=== PATIENT | male | born 1945 | race Caucasian/White ===

== ENCOUNTER 2016-04-05 20:19 | Inpatient (IN) | payer OTHER ==
[~2016-04-05] VITALS: Ht 180.3 cm; Wt 85.3 kg
--- NOTE | ~2016-04-05 | HC ---
[facility] [place] [address] CONSULTATION Name: SABINA ANTONIO Room #: 305-P [facility] IN ..#: [id number] Admission: 04/05/16 Attend Phys: Larry Fortune DO Discharge: 04/15/16 Date of : 47 Report #: [id number] THIS REPORT FOR: //name// CC: Altaf Fortune DATE OF SERVICE: 04/12/2016 HISTORY OF PRESENT ILLNESS: The patient is a 70-year-old white male who has a prior history of insulin-dependent diabetes mellitus, wounds on his feet, who was admitted with worsening weakness. He has a history of nonhealing diabetic foot ulcers and has had issues with noncompliance. He had had a prior left partial foot amputation. Upon evaluation, he was noted to have osteomyelitis of that left remaining foot. He has been followed by Infectious Disease with IV antibiotics. He was seen by Orthopedics and has now undergone a left below-knee amputation 04/11/2016. We are seeing him in rehabilitation medicine consultation. PAST MEDICAL HISTORY: Includes diabetes mellitus type 2. He has had followup with wound care, although was not going most recently. He had diabetic ulceration of the left great toe requiring amputation and a partial amputation of the left foot in 2009 and history of peripheral neuropathy. HABITS: Some alcohol use. Reports it is moderate. No recreational drug use. History of tobacco but not currently. MEDICATIONS: Please see the full medication listing. ALLERGIES: No known drug allergies. SOCIAL HISTORY: Apartment alone. He notes he can get into the apartment without going up the steps. He does not use any gait aids in the apartment but has been using a walker out in the community. He has been able to do his own ADLs, drives in the community. He has a sister who is and lives in [place], who would be able to be of some assistance. He also has friends that could assist. REVIEW OF SYSTEMS: Did not offer any current complaints of chest pain, shortness of breath or abdominal discomfort. No focal extremity pain complaints. Pain appears to be reasonably controlled involving the left residual limb. PHYSICAL EXAMINATION: GENERAL: He is a pleasant 70-year-old white male, no obvious distress. Alert and oriented. VITAL SIGNS: Last recorded temperature 98.1, pulse 75, respirations 16 and [facility] [address] [place] [address] CONSULTATION Name: SABINA ANTONIO Room #: [address] [place] [address] IN M.R.#: [id number] Admission: 04/05/16 Attend Phys: Larry Fortune DO Discharge: 04/15/16 Date of : 47 Report #: [id number] blood pressure 126/76. HEENT: Appeared to be benign. NEUROLOGIC: Cranial nerves grossly intact. Facies are symmetric. Functional range of motion of the upper extremities except for his hands. He has what looks like chronic Dupuytren's contractures of both hands with fixed flexion deformities, especially of his fourth and fifth digits. He does have good manager beverage, but again is unable to fully extend his hands bilaterally. Proximal strength appears to be a grade 4 to 4-. Lower extremities: He has the left below-knee amputation with the knee immobilizer in place, and the residual limb dressed. Proximal strength appears to be at least grade 3+ to 4-/5, although he has some discomfort as expected. Right lower extremity: His toe nails appear long. He does have some decreased proprioception, right large toenail. There is a dressing over the right lateral foot. Strength of the right lower extremity appears to be a grade 4-/5. Tone appeared to be intact. He does have some decreased sensation in a stocking distribution of that right lower extremity. ASSESSMENT: A 70-year-old white male with the following problem list: 1. Chronic osteomyelitis, now status post left below-knee amputation 04/11/2016. 2. Nonhealing diabetic foot ulcers. 3. Insulin-dependent diabetes mellitus. 4. Peripheral polyneuropathy. 5. Hypertension. 6. Generalized weakness and debilitation. 7. Bilateral Dupuytren's contractures of his hands. PLAN: Therapies, re-evaluate him post the below-knee amputation. He certainly may be a candidate for an acute in-hospital inpatient rehabilitation stay to maximize his functional independence prior to returning back to his home setting. He is clearly focussed on returning back to his apartment, and equipment issues and assistance etc. were all discussed with him. He certainly may warrant an acute in-hospital inpatient rehabilitation stay, and we will follow up with you and see how he does in therapies. <ELECTRONICALLY SIGNED> By: Altaf Zeng MD 04/17/16 0958 1234 0028 Altaf Zeng MD /nt
--- NOTE | ~2016-04-05 | HC ---
[facility] [place] [address] CONSULTATION Name: SABINA ANTONIO Room #: 305-P [facility] IN M.R.#: [id number] Admission: 04/05/16 Attend Phys: Larry Fortune DO Discharge: Date of : 47 Report #: [id number] THIS REPORT FOR: //name// CC: Altaf Fortune DATE OF SERVICE: 04/06/2016 SERVICE: Orthopedics. ALLERGIES: MUSSELS, but no known drug allergies. PAST MEDICAL HISTORY: Uncontrolled type 2 diabetes diagnosed in 2003, previous diabetic ulcer of the foot requiring amputation in 2003, MRSA, rhabdomyolysis, peripheral neuropathy and chronic bilateral foot wounds. INPATIENT MEDICATIONS: Include vancomycin, p.r.n. Tylenol, aspirin, Lipitor, Lovenox, insulin, Bystolic and Protonix. PAST SURGICAL HISTORY: In 2003, there was a left midfoot amputation secondary to diabetic ulcer. SOCIAL HISTORY: The patient lives alone. He denies substance abuse. FAMILY HISTORY: Noncontributory. REVIEW OF SYSTEMS: Positive for some mild fatigue following ambulation, but no other significant complaints. He specifically denies bilateral foot pain. He denies fever, chills or drainage. HISTORY OF PRESENT ILLNESS: The patient is a 70-year-old very pleasant male, who was brought to the Emergency Room yesterday after his sister noted an evidence of poor health, and he had been complaining of fatigue. Orthopedics was consulted for evaluation of bilateral foot wounds. He has a history of longstanding bilateral foot wounds that had previously been management Dr. Eddie Meraz. The wounds are secondary to diabetic foot ulcers, and he is status post midfoot amputation on the left side in 2003. Regarding the left foot which presently has an open wound, he denies noticing any drainage on his sock or in his shoe. He also denies any bleeding or other substance in the shower, etc. He has not been completing his wound care followup for his feet. PHYSICAL EXAMINATION: VITAL SIGNS: Temperature is 36.3, pulse 74, respirations 16, blood pressure is 104/65 and pulse ox is 95. GENERAL: He is alert and oriented, no acute distress. Elderly-appearing gentleman who appears his stated age. He is very pleasant and cooperative. [address] [address] CONSULTATION Name: SABINA ANTONIO Room #: 305-P [facility] IN M.R.#: [id number] Admission: 04/05/16 Attend Phys: Larry Fortune DO Discharge: Date of : 47 Report #: [id number] EXTREMITIES: Left lower extremity: He has good range of motion of the hip and knee actively. He has warm skin to the distal leg. He has changes consistent with the trans-midfoot amputation with a well-healed incision and a thick soft tissue envelope. There is a large erosive wound on the plantar surface of the residual limb that is deep and does likely communicate with deep tissues within the wound. There is a foul odor associated with it. I do not appreciate any purulent discharge, and there are no palpable abscesses. He does not have a palpable pulse on my exam. There is tenderness on the dorsal mid foot overlying the distal bone. Right lower extremity: He has good range of motion of the hip, knee and ankle. He has warm skin down to the foot. No palpable pulses on my exam. There is thickened callus at the base of the 5th metatarsal. There is no bony tenderness associated here. There is no drainage. There is no palpable abscess. LABORATORY DATA: White blood cell count is 10.4, hematocrit is 40.6 and platelets 186. Creatinine is 1.1. Sugars have been ranging 180-300 since he was here. IMAGING: Left foot 3 views demonstrate a midfoot amputation. There is a visible wound on the plantar surface of the residual limb. There are vascular calcifications noted. The right foot 3 views demonstrate soft tissue proliferation and thickening over the base of the 5th metatarsal, but no periosteal reaction or evidence of osteomyelitis. There are visible vascular calcifications as well. Ultrasounds, venous and arterial, were obtained this morning, but the studies are pending final report. IMPRESSION: A 70-year-old male, chronic and uncontrolled diabetic, with history of bilateral foot wounds and status post midfoot amputation on the left foot. PLAN: I think the left foot wound is most concerning and likely does communicate with the underlying bone. I think he would benefit from an MRI of both feet to assess the osseous involvement of either. I agree with wound care initiation here in the hospital. I had a yanni discussion with him about his desires for treatment to these wounds. He was lacking much insight into the chronicity and severity of the wound, particularly on the left foot; however, he has a good sense of what the ultimate curative treatment would likely be, which would presumably be a higher level of amputation if this is in fact representing osteomyelitis and a nonhealing wound. He states very adamantly that he is not interested in any sort of amputation treatment for either of these feet, and his actual quote was only in the case of "unrelenting, defying pain" would he even consider amputation as a treatment option. He is in agreement and okay with a notion of local soft tissue care and wound care, but he even said he would need to seriously consider any type of wound care debridement that would necessitate anesthesia. [address] [place] [address] CONSULTATION Name: SABINA ANTONIO Room #: 305-P ADM IN M.R.#: [id number] Admission: 04/05/16 Attend Phys: Larry Fortune DO Discharge: Date of : 47 Report #: [id number] Perhaps the MRI can help us identify the severity of both of these and get a sense of what the most appropriate thing would be based on his personal desires. I did explain to him that if he has osteomyelitis and it progresses, it could come to the point where he would have severe bone pain in which case an amputation would be a recommended procedure for palliative reasons, and he said that would be the only reason that he would consider further amputation at the time of our conversation. . <ELECTRONICALLY SIGNED> By: Javier Dumont MD 04/09/16 1734 1144 1348 aJvier Dumont MD /nt
--- NOTE | ~2016-04-05 | HC ---
[facility] [place] [address] CONSULTATION Name: SABINA ANTONIO Room #: 305-P ADM IN M.R.#: [id number] Admission: 04/05/16 Attend Phys: Larry Fortune DO Discharge: Date of : 47 Report #: [id number] THIS REPORT FOR: //name// CC: Altaf Fortune DATE OF SERVICE: 04/07/2016 CONSULTATION: Infectious diseases. HISTORY OF PRESENT ILLNESS: The patient is a 70-year-old white male admitted to [facility] on April 05 complaining of overwhelming weakness and malaise for about 3 days. The patient was to the point he could hardly walk. He felt so ill. Workup showed that he had a deep diabetic foot wound on his left foot where he had a previous transmetatarsal amputation a few years ago. Initial workup demonstrated strep in 2/2 blood cultures. Infectious Disease consultation was requested to assist with antibiotic management. The patient has been diagnosed with diabetes for approximately 12 years. He notes that in the last several months, he has pretty much stopped any formal medical care. He no longer sees his doctors. He does not take his medications. He says he occasionally checks his blood sugar, but does not really watch his diet. He has a chronic wound on his both feet. He is treating those with dressings. In this setting, the patient developed overwhelming weakness and is brought by his sister to the hospital. MEDICATION RECONCILIATION: Include Tylenol 81 mg, aspirin daily, Lipitor 20 mg at bedtime, Lovenox 40 mg subQ at bedtime, insulin sliding scale, magnesium oxide 400 mg p.r.n., bystolic 5 mg daily, Protonix 40 mg daily, p.r.n. potassium, vancomycin 1.25 grams b.i.d. and Zosyn. ALLERGIES: The patient has no medical allergies. FAMILY HISTORY: Noncontributory. SOCIAL HISTORY: The patient is single. He lives by himself. 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 He does have some support from this sister who lives in town. He denies history of tobacco or significant alcohol. REVIEW OF SYSTEMS: GENERAL: The patient is unaware of fevers, chills, sweats. He had increasing weakness and malaise. ENT: The patient denies headache, sinus congestion, cognitive dysfunction, sore throat, trouble swallowing. The patient denies any cardiac symptoms. The patient denies nausea, vomiting, diarrhea or constipation. The patient denies any pain in his extremities, although he denies having any neuropathy. [address] [address] CONSULTATION Name: SABINA ANTONIO Room #: 305-P [facility] IN M..#: [id number] Admission: 04/05/16 Attend Phys: Larry Fortune DO Discharge: Date of : 47 Report #: [id number] PHYSICAL EXAMINATION: GENERAL: The patient appears older than his stated age, alert, oriented, comfortable, pleasant, not in any distress. VITAL SIGNS: Show maximum measured temperature 100.8, patient was afebrile for the last 24 hours, blood pressure normal. SKIN: Has normal color and turgor. Wounds on the feet described below. ENT: Negative. HEART: Sounds normal. LUNGS: Clear. ABDOMEN: Belly soft, not tender. EXTREMITIES: Diminished pulses. There is interosseous atrophy. The skin is dry and dyshidrotic. On the right foot, there is an eschar on the lateral side of the foot at the level of the proximal fifth metatarsal head measuring approximately 25 x 35 mm, depth is undeterminable because of this eschar. The left foot shows the very proximal transmetatarsal amputation, actually looks like the amputation was proximal to the metatarsals at the level of tarsals. There is a large eschar wound about 45 x 35 mm, half the wound is eschar and the lateral half is fibrinous debris. There is a foul somewhat gangrenous odor coming from the foot when it is undressed. There is really no erythema nor swelling. There is moderate foul drainage from the wound. LABORATORY DATA: White count was 14 on admission, now down to 10,000, hemoglobin 13.7, hematocrit 40%, platelets 186,000, hemoglobin A1c was 8.3. Electrolytes: BUN and creatinine were normal, glucose was 233. TSH is normal. The MRI of the foot shows extensive osteomyelitis in the cuboid bone under the wound. The arterial Doppler showed no significant blockage. The microbiology laboratory reports that 2/2 blood cultures are growing strep. It is too early to rule out enterococcus. IMPRESSION: 1. Diabetic foot wound with osteomyelitis and bacteremia. 2. Diabetes in neglect. I discussed with the patient that he is at a critical juncture here. His current approach with neglect and his dressing changes is not stable. On that regimen, I would anticipate repeated hospitalizations or within 1-3 months. He is having impending gangrene and already has bacteremia with extensive osteomyelitis. The most expeditious treatment would be a below-knee amputation, but the patient says he will not agree to that unless he is in intractable pain. I explained that medical therapy would involve very intensive treatment with surgical debridement, 6-8 weeks of IV antibiotics, wound care, glycemic control, offloading; this would probably require being in a alf [address] [place] [address] CONSULTATION Name: SABINA ANTONIO Room #: 305-P ADM IN M.R.#: [id number] Admission: 04/05/16 Attend Phys: Larry Fortune DO Discharge: Date of : 46 Report #: [id number] facility or long-term acute care hospital. Hyperbaric oxygen therapy might be a useful adjunct for this Hoyt level 3 wound, possibly been early Hoyt 5. At this time, we will continue the patient on vancomycin pending results of cultures. We will discontinue the Zosyn. In addition to the lab work which has been performed, I have added a zinc level, BMP. If the patient is agreeable to medical treatment, we can consider consultation for hyperbaric medicine. Dr. Eddie Meraz has been consulted to the patient after the holiday weekend. I appreciate the opportunity to offer input in the care of this complex patient. Thank you for requesting Infectious Disease consultation. Dr. Mike had seen this patient earlier and will assume follow up on Saturday. <ELECTRONICALLY SIGNED> By: Dilan Logan MD 04/08/16 1153 1119 0041 Dilan Logan MD /nt
--- NOTE | ~2016-04-05 | S ---
[facility] [place] [address] SURGICAL PATH RPT PROCEDURE Name: SABINA AGUIRRE Room #: 305-P ADM IN M.R.#: [id number] Admission: 04/05/16 Date of : 47 Discharge: Report #: [id number] Path Case #: [id number] PATHOLOGY REPORT COLLECTION DATE: 04/11/2016 RECEIVED DATE: 04/11/2016 SUBMITTING PHYS: Dr. Javier Dumont OTHER PHYS: Dr. Altaf Fortune SPECIMEN(S) RECEIVED: A.Left below the knee amputation * * * * * * * * * * * * FINAL DIAGNOSIS: "Left below the knee amputation," amputation: - Skin and subcutaneous tissue with acute and chronic inflammation, necrosis, granulation tissue, and pseudoepitheliomatous hyperplasia. - Decalcified bone with fibrosis, predominantly chronic inflammation, marked reactive changes, and bony remodeling. (see comment) - Blood vessels with calcific atherosclerosis. COMMENT: The bony findings may represent chronic osteomyelitis. Clinical and radiographic correlation is recommended. (CLW:; d/t: 04/13/16) PATHOLOGIST: Tonya Moore M.D. REPORT ELECTRONICALLY SIGNED BY: Tonya Moore M.D. DATE/TIME: 04/13/2016 20:03 * * * * * * * * * * * * GROSS PATHOLOGY: The specimen is received fresh in an orange biohazard bag and labeled "Sabina Aguirre and left below the knee amputation." Received is a left lower extremity specimen amputated through the tibia and fibula with a smooth resection margin. The specimen has previously undergone a transmetatarsal amputation, therefore all 5 digits are absent. In the digits place is a blunt end. The specimen measures 14.0 cm from heel blunt end of foot (where digits would be), 25.7 cm from heel to soft tissue resection margin, 41.2 cm from heel to tibial bone resection margin, and 42.5 cm from heel to fibular bone resection margin. The skin, soft tissue, and bone resection margins are grossly viable and unremarkable. The skin is vasquez, dusky, diffusely mottled, and wrinkled. There is a 5.5 x 4.8 cm bright red to vasquez-brown ulcer located on the plantar aspect of the foot. The ulcer [address] [address] SURGICAL PATH RPT PROCEDURE Name: MARISELASABINADEE LAUREN Room #: 305-P [facility] IN M.R.#: [id number] Admission: 04/05/16 Date of : 47 Discharge: Report #: [id number] Path Case #: [id number] grossly extends to and involves the underlying bone. Sectioning of the anterior and posterior tibial vasculature reveals patent and slightly calcified lumens. Kettle Coordinator sections are submitted as follows: A1 longitudinal section of skin and soft tissue margin (inked) A2-A3 ulcer A4 bone underlying ulcer, following decalcification A5 anterior tibial vasculature, following decalcification A6 posterior tibial vasculature, following decalcification (TTL; 04/12/2016) CLINICAL HISTORY: Left foot osteomyelitis INITIAL CPT CODE(S): A; 94669, 43221 Professional services performed by [facility] at [facility] [address] [place] [address] Technical services performed by [facility] at [address] [place] [address], [facility] [address], [place] [address]. [facility] [address] [place] [address] PHONE: [phone] DIRECTOR: Param Gayle M.D. * * * END OF REPORT * * *
--- NOTE | ~2016-04-05 | HC ---
[facility] [place] [address] CONSULTATION Name: SABINA ANTONIO Room #: 305-P [facility] IN M.R.#: [id number] Admission: 04/05/16 Attend Phys: Larry Fortune DO Discharge: 04/15/16 Date of : 47 Report #: [id number] THIS REPORT FOR: //name// CC: Altaf Fortune DATE OF SERVICE: 04/10/2016 PERSONAL PHYSICIAN:Arnulfo Pink M.D. CHIEF COMPLAINT: Diabetic foot ulcer. REASON FOR DEBRIDEMENT: Diabetic foot ulcer with callus and necrotic tissue. PREPROCEDURE DIAGNOSES: 1. Chronic ulceration on the plantar aspect right foot with limited involvement of subcutaneous . 2. Diabetes mellitus. 3. Peripheral vascular disease. POSTPROCEDURE DIAGNOSES: 1. Chronic ulceration on the plantar aspect right foot with limited involvement of subcutaneous . 2. Diabetes mellitus. 3. Peripheral vascular disease. PROCEDURE: After timeout was taken, verbal consent was obtained. The patient had excisional debridement down to and including subcutaneous tissue with removal of viable and nonviable tissue. A 100% of the ulcer was debrided for a total of less than 20 square cm totally debrided. Predebridement measurements were 3.0 x 3.5 x 0.1 cm. Post-debridement measurement or 3.3 x 3.9 x 0.3 cm 0.2 cm. Bleeding was minimal easily controlled. Pressure scalpel and forceps were used for the debridement. No anesthesia was used for the debridement. The patient tolerated the procedure quite well. Post-debridement, the patient had a sterile dressing placed over the wound. ulcer. Once again, this was excisional debridement less than 20 square cm of subcutaneous tissue. <ELECTRONICALLY SIGNED> By: Eddie Meraz MD 04/26/16 1342 1340 2137 Eddie Meraz MD /nt
--- NOTE | ~2016-04-05 | 2DMMODE ---
[facility] [place] [address] 2 D/M-MODE ECHOCARDIOGRAM Name: SABINA ANTONIO Room #: 305-P [facility] IN .R.#: [id number] Admission: 04/05/16 Attend Phys: Larry Fortune, Discharge: Date of : 47 Date of Service: 04/10/16 [facility] Report #: [id number] THIS REPORT FOR: //name// Transthoracic Echocardiography Ordering physician: Bhupendra Garay Referring physician: Bhupendra Garay Supervisor Of Officials: Kimberly Jim Indications/History: Bacteremia. Hx: DM BP: 132 / HR: 60bpm Height: 71in Weight: 189.6lb 71 Study data: M-mode, complete 2D, complete spectral Doppler, and color Doppler. Location: Bedside. Routine. Image quality was adequate. 2D measurements Normal Normal LVID ED 47.9mm 36-57 IVS ED 10.7mm 6-11 LVID ES 27.6mm 23-40 LVPW ED 11.1mm 6-11 LA volume 31ml/m2 16-28 AoRoot diam 34.8mm 21-37 index ED LVOT diameter 22mm 18-23 Findings: Left ventricle: The cavity size was normal. There was moderate focal basal hypertrophy of the septum. Systolic function was normal. The estimated ejection fraction was in the range of 60% to 65%. Wall motion was normal. Right ventricle: The cavity size was normal. Systolic function was normal. Right atrium: The atrium was normal in size. Left atrium: The atrium was at the upper limits of normal in size. Volume index: 31ml/m2 (S). Aortic valve: Structurally normal valve. Moderately sclerotic leaflets. Doppler: There was no stenosis. No regurgitation. Peak velocity: 146cm/s (S). Mitral valve: Moderately calcified annulus with more dende [facility] [address] [place] [address] 2 D/M-MODE ECHOCARDIOGRAM Name: SABINA ANTONIO Room #: 305-P [facility] IN Torin#: [id number] Admission: 04/05/16 Attend Phys: Larry Fortune, Discharge: Date of : 47 Date of Service: 04/10/16 [facility] Report #: [id number] focal cslcification at base of anterior leaflet. Mildly thickened leaflets . Doppler: There was no evidence for stenosis. Moderate regurgitation. Eccentric jet. Peak E-wave velocity: 101.5cm/s. Peak gradient: 4.1mm Hg (D). Peak A-wave velocity: 117.1cm/s. Tricuspid valve: Structurally normal valve. Doppler: There was no evidence for stenosis. No regurgitation. Pulmonic valve: Structurally normal valve. Doppler: There was no evidence for stenosis. Trivial regurgitation. Pericardium: There was no pericardial effusion. Aorta: Aortic root: The aortic root was normal in size. Pulmonary artery: Pressure could not be reliably determined due to minimal or absent tricuspid insufficiency jet, but pulmonary hypertension was not suggested. Diastolic function: Doppler parameters are consistent with abnormal left ventricular relaxation (grade 1 diastolic dysfunction). Systemic veins: Inferior vena cava: The vessel was normal in size; the respirophasic diameter changes were in the normal range (= 50%). Conclusions 1. Left ventricle: The cavity size was normal. There was moderate focal basal hypertrophy of the septum. Systolic function was normal. The estimated ejection fraction was in the range of 60% to 65%. Wall motion was normal. 2. Left atrium: The atrium was at the upper limits of normal in size. 3. Aortic valve: Structurally normal valve. Moderately sclerotic leaflets. There was no stenosis. No regurgitation. 4. Mitral valve: Moderately calcified annulus with more dende focal cslcification at base of anterior leaflet. Mildly thickened leaflets . There was no evidence for stenosis. Moderate regurgitation. Eccentric jet. 5. Pulmonary arteries: Pressure could not be reliably determined due to minimal or absent tricuspid [facility] [address] [place] [address] 2 D/M-MODE ECHOCARDIOGRAM Name: SABINA ANTONIO XIN Room #: 305-P [facility] IN ..#: [id number] Admission: 04/05/16 Attend Phys: Larry Fortune, Discharge: Date of : 47 Date of Service: 04/10/16 1038 Report #: [id number] insufficiency jet, but pulmonary hypertension was not suggested. <ELECTRONICALLY SIGNED> By: Saeed Dodd MD 04/10/16 1147 1038 1147 Saeed Dodd MD /angelina
--- NOTE | ~2016-04-05 | HC ---
[facility] [place] [address] CONSULTATION Name: SABINA ANTONIO Room #: 305-P [facility] IN M.R.#: [id number] Admission: 04/05/16 Attend Phys: Larry Fortune DO Discharge: 04/15/16 Date of : 47 Report #: [id number] THIS REPORT FOR: //name// CC: Alatf Fortune DATE OF SERVICE: 04/13/2016 REASON FOR CONSULTATION: Depression, tearful. HISTORY OF PRESENT ILLNESS: This is a gentleman, who recently had a left below the knee amputation. There was concern about him being depressed and tearful. Some question has also been made as far as his adherence to treatment. The patient is quite tearful, when I approach. He told me that he has accepted the amputation and is motivated to go to rehabilitation and return home. He does not have any doubt about returning to driving or managing his own affairs. When asked about any specific course of action to prevent further infections or amputation, he does not have any very specific answers nor does he have concerns about this. PAST PSYCHIATRIC HISTORY: It does not appear that he has seen a psychiatrist before. He has not been on a psychiatric consultation service in the past. He has seen the neuropsychologist for testing and with the last around of testing in April 2013, there was a little concern about decreased cognition and perhaps more so into reduced insight into aspects of his disabilities. He tells me that the doctors told him he did not need insulin so long as he could manage his conditions with a proper diet and that when he did check his blood sugar, he always kept it "around 120". Unfortunately, this does not seem to be the case based upon some of the hemoglobin Alc that are available including 8.3 on 04/06 and 10.1 on 07/10/2014. There have been random glucoses during this hospital stay, many of which were over 200. PAST MEDICAL HISTORY: Diabetes, recent cejkr-dad-rqaj amputation. He is on day 8 of ceftriaxone. History of neuropathy. SOCIAL HISTORY: He used to work in [employer], did this for many decades, now he is happy retired, lives alone and denies any difficulties with this. MENTAL STATUS EXAM: male, casually dressed, stable mood and affect, seems to be a bit superficial with response to question. No suicidal ideation, no homicidal ideation, no hallucinations, no delusions. Insight, judgment appears fair, but some of his answers seems superficial. DIAGNOSES: AXIS I: 1. Mood disorder, not otherwise specified. [address] [address] CONSULTATION Name: SABINA ANTONIO Room #: 305-P [facility] IN ..#: [id number] Admission: 04/05/16 Attend Phys: Larry Frotune DO Discharge: 04/15/16 Date of : 47 Report #: [id number] 2. Rule out adjustment disorder with depressed mood. 3. Rule out cognitive disorder, not otherwise specified. AXIS II: Deferred. AXIS III: See past medical history. AXIS IV: Moderately severe. AXIS V: 45. RECOMMENDATIONS: I understand he is going to be going up to rehabilitation. We are happy to continue to monitor him and provide input. I would be curious how neuropsychological testing with Dr. Bravo would compare, now that a few more years have past. I do worry that some of the information the gentleman has given me might not be quite factually correct including blood sugars that lately have always stayed around 120 and his physician telling him that he did not need insulin and that he could control his diabetes with diet. I do not know whether he has a healthcare power of pediatric care coordinator or not, although the sequelae of diabetes can be severe, does not appear he has been prone to bouts of diabetic ketoacidosis or acute issues related to diabetes and its management. <ELECTRONICALLY SIGNED> By: Babatunde Campuzano MD 04/24/16 0857 1534 0440 Babatunde Campuzano MD /nt
--- NOTE | ~2016-04-05 | HC ---
[facility] [place] [address] CONSULTATION Name: SABINA ANTONIO Room #: 305-P [facility] IN M.R.#: [id number] Admission: 04/05/16 Attend Phys: Larry Fortune DO Discharge: 04/15/16 Date of : 47 Report #: [id number] THIS REPORT FOR: //name// CC: Altaf Fortune DATE OF SERVICE: 04/08/2016 REASON FOR CONSULTATION: Nonhealing diabetic foot ulcer of left foot, status post forefoot amputation. HISTORY: The patient is a 70-year-old patient with diabetes mellitus, well known to Dr. Meraz from care of a nonhealing diabetic foot ulcer. This gentleman was diagnosed with diabetes mellitus type 2, 02/2004 and required multiple partial amputations of the left foot for diabetic foot ulceration, initially ending up with an amputation of the entire forefoot. The patient had seen Dr. Meraz previously for a nonhealing diabetic foot ulcer, which the patient has had for over a year; however, he has not seen Dr. Meraz recently. The patient was now admitted to [facility] due to malaise and a deteriorating ulcer of the left foot. He had some signs of sepsis with white blood count of 14.5 and begun on antibiotics and was seen by Dr. Logan. Wound care is consulted for care of his nonhealing diabetic foot ulcer. PAST MEDICAL HISTORY: 1. Diabetes mellitus type 2 since 02/2004. 2. Diabetic polyneuropathy. 3. History of rhabdomyolysis, 10/2009. 4. History of urinary tract infection. PAST SURGICAL HISTORY: Multiple amputations of the left foot, resulting in a left complete forefoot amputation. REVIEW OF SYSTEMS: The patient feels improved with IV antibiotics. SOCIAL HISTORY: The patient reports some alcohol use. Does not smoke. HOSPITAL TEST: White blood count on admission 14.5 with the left shift, 87 segs. Radiographic tests include chest x-ray showing no cardiopulmonary disease. Ultrasound of the bilateral lower extremities shows no evidence of hemodynamically significant stenosis. Dorsalis pedis and posterior tibial arteries are patent. Plain x-ray of the left foot showed no convincing radiographic evidence for osteomyelitis. Venous ultrasound showed no evidence of deep vein thrombosis. MRI of the left foot shows a small plantar soft tissue noted at the level of the base of fifth metatarsal without underlying osteomyelitis. [address] [address] CONSULTATION Name: SABINA ANTONIO Room #: 305-P [facility] IN .R.#: [id number] Admission: 04/05/16 Attend Phys: Larry Fortune DO Discharge: 04/15/16 Date of : 47 Report #: [id number] PHYSICAL EXAMINATION: GENERAL: Chronically ill-appearing elderly man. VITAL SIGNS: Stable. He is afebrile. HEENT: Mucous membranes are moist. NECK: Supple. CHEST: Clear. ABDOMEN: Soft. EXTREMITIES: Shows right lower extremity intact. Examination of the left lower extremity shows a complete forefoot amputation. On the plantar aspect of the left foot, there is an open 1.5 x 1.5 cm ulcer with some nonviable tissue at the base. No obvious exposed bone. This was surrounded by a 4 cm in diameter area of dark crusted nonviable-appearing tissue, which may represent simply crusted callus with no obvious underlying wound. This is slightly sensitive to touch. There is no surrounding cellulitis. ASSESSMENT AND PLAN: 1. Diabetes mellitus type 2. 2. Status post multiple amputations of the left foot, resulting in complete forefoot amputation. 3. Diabetic polyneuropathy. 4. Chronic nonhealing ulcer of the left foot, admitted with signs of infection, improved with antibiotics. Negative for osteomyelitis by MRI. The patient has been seen in consultation by Dr. Dilan Logan. He is currently on IV antibiotics and has been seen by Orthopedics, Dr. Barbara Paul who discussed typical recommendation. This clinical scenario would be a below-knee amputation. The patient indicates he does not wish to have this performed. Based on the appearance of the wound, we will now initiate therapy with morphine-Silvadene compound changed twice daily with Optifoam pad. Local care may require. Local debridement of tissues were discussed with Dr. Meraz. <ELECTRONICALLY SIGNED> By: Teja Montague MD 04/16/16 1401 0719 0905 Teja Montague MD /nt
--- NOTE | ~2016-04-05 | O ---
[facility] [place] [address] OPERATIVE REPORT Name: ANTONIOSABINA LAUREN Room #: 305-P [facility] IN M.R.#: [id number] Admission: 04/05/16 Attend Phys: Larry Fortune DO Discharge: Date of : 47 Report #: [id number] THIS REPORT FOR: //name// CC: Altaf Fortune DATE OF SERVICE: 04/11/2016 SERVICE: Orthopedics. FACILITY: [facility]. PREOPERATIVE DIAGNOSES: 1. Nonhealing diabetic wound, left lower extremity. 2. Status post prior mid foot amputation, left foot. 3. Osteomyelitis, left foot. 4. Uncontrolled diabetes mellitus with history of medication noncompliance. POSTOPERATIVE DIAGNOSES: 1. Nonhealing diabetic wound, left lower extremity. 2. Status post prior mid foot amputation, left foot. 3. Osteomyelitis, left foot. 4. Uncontrolled diabetes mellitus with history of medication noncompliance. PROCEDURE: Left below knee amputation. COMPLICATIONS: None. DRAINS: None. SPECIMENS: Left leg. ESTIMATED BLOOD LOSS: 30 mL. TOURNIQUET TIME: 53 minutes. INTRAVENOUS FLUIDS: 900 mL of crystalloid. HISTORY AND INDICATIONS: The patient is a 70-year-old male who was admitted to the hospital last week with uncontrolled diabetes, history of diabetic noncompliance including ongoing nonusage of his medicines and a chronic nonhealing wound going back a couple of years. He had previously had a mid foot amputation of the left foot and had imaging that was confirmatory of osteomyelitis of the mid foot and so the only other curative of option was below-knee amputation. He took several days to consider this. All the various subspecialists agreed that below-knee amputation was the appropriate option and [facility] [address] [place] [address] OPERATIVE REPORT Name: SABINA ANTONIO XIN Room #: 305-P AD[facility] IN M.R.#: [id number] Admission: 04/05/16 Attend Phys: Larry Fortune DO Discharge: Date of : 47 Report #: [id number] then I had several conversations with him. We spoke last night and weighed the risks, benefits, alternatives and indications and ultimately he felt like this was the right thing to do so. We elected to proceed with below-knee amputation. Risks include but not limited to pain, bleeding, infection, injury to nerves, wound breakdown, need for further surgery including revision, prosthetic complications and difficulty to ambulation as well as complications related to anesthesia such as stroke, heart attack, pulmonary complications, thromboembolic disease and . Despite these risks, he wished to proceed. PROCEDURE IN DETAIL: After left lower extremity was correctly identified in the preoperative holding area as the operative extremity, the patient was taken to the operating room and placed supine on operating table and general endotracheal anesthesia was induced without complication. All bony prominences and subcutaneous nerves were padded appropriately. A tourniquet was applied to the left thigh. Prophylactic antibiotics were administered with 1 gram of vancomycin. He is receiving ongoing Rocephin during his hospitalization. Left lower extremity was then prepped and draped in standard sterile fashion. A time-out procedure was performed. The leg was elevated and exsanguination was achieved with elevation and then tourniquet was inflated to 300 mmHg. Total tourniquet time was 53 minutes. The skin flaps were marked at the level of the tibia, 10 cm from the joint line and then skin incisions were made sharply. Dissection was taken down to the fascia. The tibia was then exposed. Soft tissue stripped from the tibia. Initial anterior compartment muscle was dissected as vessels were encountered. They were ligated and then cauterized and/or cut. Silk ties were used for ligation. Nerves were cut sharpy and allowed to retract. The tibia was sectioned 1 cm proximal to the skin and fascial incision and then the posterior compartment soft tissues were dissected as well with an effort to obtain an appropriate soft tissue padding for the tibial remnant. The fibula was transected 1 cm proximal to the tibial transection level. The leg was then removed and sent for pathology. Final soft tissue work was completed and the tourniquet was let down and we confirmed that hemostasis was achieved. The remainder of the case was performed without tourniquet to ensure that there was a good sense of dry wound bed. The fascia was then closed with 0 Vicryl suture in [id number]-dt-[id number] fashion brining the posterior skin flap over the tibia and then securely fixed to the periosteal layer. This provided good coverage of the tibia after it had been beveled with an anterior cut. There were no significant dog ears and no additional debulking of the soft tissue flap needed to be performed and the fascial layer was closed with 2-0 Vicryl suture in interrupted fashion and the skin was closed with 2-0 Vicryl and 3-0 diagonal mattress suture nylon. A sterile dressing followed by a compressive JANNET wrap and a knee immobilizer were then applied. [facility] [address] [place] [address] OPERATIVE REPORT Name: SABINA ANTONIO Room #: 305-P ADM IN M.Mendy.#: [id number] Admission: 04/05/16 Attend Phys: Larry Fortune DO Discharge: Date of : 47 Report #: [id number] There were no complications. All counts were recorded as correct. <ELECTRONICALLY SIGNED> By: Javier Dumont MD 04/12/16 1617 1354 1542 Javier Dumont MD /nt
--- NOTE | ~2016-04-05 | EKG ---
[address] [place] [address] ELECTROCARDIOGRAM REPORT Name: SABINA ANTONIO Room #: 305-P ADM IN M.R.#: [id number] Admission: 04/05/16 Attend Phys: Larry Fortune DO Discharge: Date of : 47 Report #: [id number] THIS REPORT FOR: //name// [facility] ED Test Date: 2016-04-05 Test Time: 21:43:26 Pat Name: SABINA ANTONIO Department: Room: 305 Gender: M Manager Steel: RONY : 1945 Requested By: Kimberlee Sylvester Order Number: [id number] MD: Osman Kenyon Measurements Intervals [place] Rate: 118 P: 47 IN: 180 QRS: 18 QRSD: 86 T: 268 QT: 307 QTc: 431 Interpretive Statements Sinus tachycardia Borderline ST and T abnormalities No previous ECG available for comparison Electronically Signed On 04-06-2016 9:31:15 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
[~2016-04-05 20:19] MED LIST: ANCEF 1GM1 GM/50 M1 IV; ANCEF 1GM1 GM/50 M1 IVPB; APAP500 PO; ATENOLOL 50 MG50 M1 PO; BAYER CHEWABLE81 MG PO; BETADINE30 ML TOP; BYSTOLIC 5 MG5 M1 PO; Cyanocobalamin SUBLING; ENOXAPARIN40 MG/0.1 SUBQ; FLOMAX PO; IBUPROFEN; K-DUR 20 MEQ T20 MEQ PO; LEVEMIR SUBQ; LIPITOR 20 MG T20 M1 PO; LIPITOR40 MG PO; METFORMIN HCL500 MG PO; NOVOLOG100 UNIT/1 SUBQ; PACERONE 200 M200 M1 PO; PLAVIX 75 MG TA75 M1 PO; PROTONIX40 M2 PO; ROBAXIN 750 MG750 M1 PO; SODIUM CHLORIDE50 M4 IV; TEARS NATURALE1 EACH OPHTHALMIC; X VIATE TP
[2016-04-05 20:20] VITALS: BP 119/70
[2016-04-05 21:32] LABS: HEMATOCRIT 47.7 % (42.0-52.0); HEMOGLOBIN 15.8 gm/dL (14.0-18.0); MCH 27.4 pg (26.0-34.0); MCHC 33.2 % (28.0-37.0); MCV 82.3 fL (80.0-100.0); PLATELET COUNT 216 thou/uL (150-400); RBC 5.79 mil/uL (4.50-6.00); RDW 15.4 % (10.5-14.5); WBC 14.5 thou/uL (4.0-11.0)
[2016-04-05 21:36] LABS: MANUAL DIFF YES
[2016-04-05 21:41] LABS: CALCIUM 9.2 mg/dL (8.5-10.1); CREATININE 1.3 mg/dL (0.6-1.3)
[2016-04-05 21:49] LABS: ABSOLUTE NEUTROPHILS 12.6 thou/uL (1.4-8.2); TOTAL CELL COUNT 100
[2016-04-05 23:17] VITALS: BP 139/80
[2016-04-06] VITALS (7 sets, daily range): BP systolic 104–154; BP diastolic 61–85
[2016-04-06 02:06] LABS: URINE BILIRUBIN NEGATIVE (Negative); URINE BLOOD 1+ (Negative); URINE COLOR YELLOW; URINE GLUCOSE-RANDOM* 2+ (Negative); URINE KETONES 1+ (Negative); URINE LEUKOCYTES-REFLEX NEGATIVE (Negative); URINE PROTEIN (DIPSTICK) 1+ (Negative); URINE SPECIFIC GRAVITY 1.015 (1.003-1.035)
[2016-04-06 02:31] LABS: CASTS None Seen /LPF (None Seen); CRYSTALS None Seen /LPF (None Seen); SQUAMOUS 0-3 Few /LPF (0-3); TRANSITIONAL EPITHEL CELL 0-3 Few /LPF (None Seen); URINE RBC 0-2 Rare /HPF (0-2); URINE WBC-REFLEX 0-5 Rare /HPF (0-5)
[2016-04-06 02:32] LABS: HYALINE CASTS 0-3 Few /LPF (None Seen)
[2016-04-06 04:56] LABS: HEMATOCRIT 40.6 % (42.0-52.0); MCH 27.6 pg (26.0-34.0); MCHC 33.8 % (28.0-37.0); MCV 81.7 fL (80.0-100.0); RBC 4.97 mil/uL (4.50-6.00); RDW 15.3 % (10.5-14.5); WBC 10.4 thou/uL (4.0-11.0)
[2016-04-06 05:14] LABS: HEMOGLOBIN 13.7 gm/dL (14.0-18.0)
[2016-04-06 05:48] LABS: CALCIUM 7.9 mg/dL (8.5-10.1); CREATININE 1.1 mg/dL (0.6-1.3); POTASSIUM 3.1 mmol/L (3.5-5.1)
[2016-04-06 14:12] LABS: TSH 0.796 uIU/mL (0.450-4.500)
[2016-04-06 20:24] LABS: CALCIUM 7.9 mg/dL (8.5-10.1); POTASSIUM 3.5 mmol/L (3.5-5.1)
[2016-04-06 20:25] LABS: MAGNESIUM 1.7 mg/dL (1.8-2.4)
[2016-04-07 01:06] LABS: GLYCOHEMOGLOBIN (HGB A1C) 8.3 % (4.8-5.6)
[2016-04-07 03:45] VITALS: BP 117/63
[2016-04-07 08:00] VITALS: BP 133/75
[2016-04-07 12:00] VITALS: BP 144/84
[2016-04-07 16:00] VITALS: BP 128/73
[2016-04-07 19:30] VITALS: BP 121/66
[2016-04-08 03:45] VITALS: BP 114/54
[2016-04-08 07:50] VITALS: BP 132/71
[2016-04-08 08:22] LABS: BASOPHILS 0.6 % (0.0-2.0); HEMATOCRIT 41.4 % (42.0-52.0); HEMOGLOBIN 13.6 gm/dL (14.0-18.0); LYMPHOCYTES 32.1 % (24.0-44.0); MCH 27.3 pg (26.0-34.0); MCHC 32.9 % (28.0-37.0); MCV 82.9 fL (80.0-100.0); MONOCYTES 11.1 % (1.0-8.0); PLATELET COUNT 199 thou/uL (150-400); POLYS 52.2 % (36.0-66.0); RBC 4.99 mil/uL (4.50-6.00); WBC 5.7 thou/uL (4.0-11.0)
[2016-04-08 08:23] LABS: MANUAL DIFF NO
[2016-04-08 08:46] VITALS: BP 132/71
[2016-04-08 08:55] LABS: CALCIUM 8.5 mg/dL (8.5-10.1); CREATININE 0.8 mg/dL (0.6-1.3); POTASSIUM 3.2 mmol/L (3.5-5.1)
[2016-04-08 12:49] VITALS: BP 111/59
[2016-04-08 16:39] VITALS: BP 134/85
[2016-04-08 19:21] VITALS: BP 136/69
[2016-04-09 03:58] LABS: ABSOLUTE NEUTROPHILS 3.1 thou/uL (1.4-8.2); BASOPHILS 0.5 % (0.0-2.0); EOSINOPHILS 4.5 % (0.0-3.0); HEMATOCRIT 39.5 % (42.0-52.0); HEMOGLOBIN 13.1 gm/dL (14.0-18.0); LYMPHOCYTES 34.6 % (24.0-44.0); MCH 27.5 pg (26.0-34.0); MCHC 33.2 % (28.0-37.0); MONOCYTES 8.9 % (1.0-8.0); PLATELET COUNT 197 thou/uL (150-400); POLYS 51.5 % (36.0-66.0); RBC 4.76 mil/uL (4.50-6.00); RDW 15.3 % (10.5-14.5)
[2016-04-09 03:59] LABS: MANUAL DIFF NO
[2016-04-09 04:08] VITALS: BP 146/69
[2016-04-09 04:17] LABS: CALCIUM 8.3 mg/dL (8.5-10.1); CREATININE 0.9 mg/dL (0.6-1.3); POTASSIUM 3.4 mmol/L (3.5-5.1)
[2016-04-09 08:07] VITALS: BP 123/67
[2016-04-09 12:16] VITALS: BP 125/78
[2016-04-09 16:10] VITALS: BP 123/72
[2016-04-09 20:00] VITALS: BP 148/83
[2016-04-10 04:00] VITALS: BP 120/64
[2016-04-10 08:49] VITALS: BP 132/71
[2016-04-10 11:15] VITALS: BP 125/73
[2016-04-10 18:55] VITALS: BP 111/61
[2016-04-10 20:00] VITALS: BP 130/77
[2016-04-11] VITALS (8 sets, daily range): BP systolic 95–163; BP diastolic 44–82
[2016-04-12 03:25] VITALS: BP 116/67
[2016-04-12 04:53] LABS: ABSOLUTE NEUTROPHILS 11.5 thou/uL (1.4-8.2); BASOPHILS 0.2 % (0.0-2.0); HEMATOCRIT 41.3 % (42.0-52.0); HEMOGLOBIN 13.3 gm/dL (14.0-18.0); LYMPHOCYTES 13.5 % (24.0-44.0); MCH 26.8 pg (26.0-34.0); MCHC 32.2 % (28.0-37.0); MCV 83.1 fL (80.0-100.0); PLATELET COUNT 308 thou/uL (150-400); POLYS 78.3 % (36.0-66.0); RBC 4.97 mil/uL (4.50-6.00); WBC 14.7 thou/uL (4.0-11.0)
[2016-04-12 05:15] LABS: ALBUMIN 2.5 g/dL (3.4-5.0); CALCIUM 8.5 mg/dL (8.5-10.1); CREATININE 1.2 mg/dL (0.6-1.3); TOTAL BILIRUBIN 0.4 mg/dL (<0.1-1.0); TOTAL PROTEIN 6.5 g/dL (6.4-8.2)
[2016-04-12 05:23] LABS: MANUAL DIFF NO
[2016-04-12 07:34] VITALS: BP 122/70
[2016-04-12 12:09] VITALS: BP 126/76
[2016-04-12 19:24] VITALS: BP 130/71
[2016-04-12 23:37] VITALS: BP 160/81
[2016-04-13 03:41] VITALS: BP 160/97
[2016-04-13 07:06] VITALS: BP 1395/79
[2016-04-13 08:27] LABS: ABSOLUTE NEUTROPHILS 9.5 thou/uL (1.4-8.2); BASOPHILS 1.1 % (0.0-2.0); EOSINOPHILS 0.9 % (0.0-3.0); HEMATOCRIT 40.5 % (42.0-52.0); HEMOGLOBIN 13.6 gm/dL (14.0-18.0); MCH 27.1 pg (26.0-34.0); MCHC 33.5 % (28.0-37.0); MCV 80.8 fL (80.0-100.0); MONOCYTES 11.3 % (1.0-8.0); PLATELET COUNT 300 thou/uL (150-400); POLYS 67.7 % (36.0-66.0); RBC 5.02 mil/uL (4.50-6.00); RDW 15.2 % (10.5-14.5)
[2016-04-13 08:28] LABS: MANUAL DIFF NO
[2016-04-13 08:36] LABS: CALCIUM 8.9 mg/dL (8.5-10.1); CREATININE 0.9 mg/dL (0.6-1.3)
[2016-04-13 11:51] VITALS: BP 145/69
[2016-04-13 15:47] VITALS: BP 121/76
[2016-04-13 20:00] VITALS: BP 109/68
[2016-04-14 04:00] VITALS: BP 128/68
[2016-04-14 05:42] LABS: ABSOLUTE NEUTROPHILS 6.9 thou/uL (1.4-8.2); BASOPHILS 0.4 % (0.0-2.0); EOSINOPHILS 1.2 % (0.0-3.0); HEMATOCRIT 38.7 % (42.0-52.0); HEMOGLOBIN 12.8 gm/dL (14.0-18.0); LYMPHOCYTES 21.8 % (24.0-44.0); MCH 27.2 pg (26.0-34.0); MCV 82.5 fL (80.0-100.0); MONOCYTES 12.6 % (1.0-8.0); PLATELET COUNT 294 thou/uL (150-400); RDW 15.1 % (10.5-14.5); WBC 10.8 thou/uL (4.0-11.0)
[2016-04-14 05:46] LABS: MANUAL DIFF NO
[2016-04-14 05:52] LABS: CALCIUM 8.9 mg/dL (8.5-10.1); CREATININE 0.9 mg/dL (0.6-1.3); POTASSIUM 3.7 mmol/L (3.5-5.1)
[2016-04-14 08:00] VITALS: BP 110/73
[2016-04-14 11:30] VITALS: BP 124/61
[2016-04-14 16:00] VITALS: BP 116/62
[2016-04-14 20:00] VITALS: BP 147/72
[2016-04-15 04:00] VITALS: BP 127/69
[2016-04-15 05:45] LABS: ABSOLUTE NEUTROPHILS 7.9 thou/uL (1.4-8.2); BASOPHILS 0.5 % (0.0-2.0); EOSINOPHILS 0.5 % (0.0-3.0); MCH 27.3 pg (26.0-34.0); MCHC 33.3 % (28.0-37.0); MCV 81.8 fL (80.0-100.0); MONOCYTES 9.3 % (1.0-8.0); PLATELET COUNT 262 thou/uL (150-400); POLYS 69.7 % (36.0-66.0); RDW 15.2 % (10.5-14.5); WBC 11.3 thou/uL (4.0-11.0)
[2016-04-15 05:56] LABS: MANUAL DIFF NO
[2016-04-15 05:59] LABS: CALCIUM 8.5 mg/dL (8.5-10.1); CREATININE 0.9 mg/dL (0.6-1.3); POTASSIUM 3.4 mmol/L (3.5-5.1)
[2016-04-15 07:56] VITALS: BP 120/64
[2016-04-15] MEDS ORDERED: BYSTOLIC 5 MG5 MG PO (12:31)
[2016-04-15] MEDS ORDERED: ASPIR 8181 MG PO (12:31)
[2016-04-15] MEDS ORDERED: LEVEMIR SUBQ (12:31)
[2016-04-15] MEDS ORDERED: PANTOPRAZOLE SO40 M1 PO (12:31)
[2016-04-15] MEDS ORDERED: ATORVASTATIN CA20 MG PO (12:31)
[2016-04-15] MEDS ORDERED: HUMALOG100 UNIT/1 SUBQ (12:31)
[2016-04-15] MEDS ORDERED: ACETAMINOPHEN325 M1 PO (12:31)
[2016-04-15 13:00] VITALS: BP 116/63
[2016-04-15] MEDS ORDERED: HYDROCODONE-APA1 TA1 PO (13:31)
[2016-04-15] MEDS ORDERED: ENOXAPARIN40 MG/0.1 SUBQ (13:58)
[2016-04-15] MEDS ORDERED: NOVOLOG100 UNIT/1 SUBQ (14:00)
[2016-04-15 14:29] VITALS: BP 116/63
== END 2016-04-15 15:00 | DRG 853 ==
LOC: ER 20:19 → 3N 22:11 → EROBS 22:11 → 3N 23:19
PROVIDERS: Emergency Medicine; Family Medicine; Hospitalist; Internal Medicine Endocrinology, Diabetes & Metabolism; Internal Medicine Infectious Disease; Nurse Practitioner; Orthopaedic Surgery Sports Medicine
PROC: 05HB33Z Insertion of Infusion Device into Right Basilic Vein, Percutaneous Approach (ICD-10-PCS; 2016-04-08)
PROC: 0JBQ0ZZ Excision of Right Foot Subcutaneous Tissue and Fascia, Open Approach (ICD-10-PCS; 2016-04-10)
PROC: 0Y6J0Z1 Detachment at Left Lower Leg, High, Open Approach (ICD-10-PCS; principal; 2016-04-11)
DX: A41.9 Sepsis, unspecified organism (principal); E43 Unspecified severe protein-calorie malnutrition; M86.9 Osteomyelitis, unspecified; E11.621 Type 2 diabetes mellitus with foot ulcer; E11.40 Type 2 diabetes mellitus with diabetic neuropathy, unspecified; E11.65 Type 2 diabetes mellitus with hyperglycemia; E87.6 Hypokalemia; F32.9 Major depressive disorder, single episode, unspecified; Z60.2 Problems related to living alone; E11.51 Type 2 diabetes mellitus with diabetic peripheral angiopathy without gangrene; M72.0 Palmar fascial fibromatosis [Dupuytren]; Z89.412 Acquired absence of left great toe; Z89.432 Acquired absence of left foot; Z79.899 Other long term (current) drug therapy; Z79.82 Long term (current) use of aspirin; Z87.440 Personal history of urinary (tract) infections; Z91.19 Patient's noncompliance with other medical treatment and regimen; Z79.4 Long term (current) use of insulin; Z68.26 Body mass index [BMI] 26.0-26.9, adult
CPT/HCPCS: 10096; 27000; 50010; 50101; 50386; 53000; 56524; 56527; 57091; 62110; 62900; 70005

== ENCOUNTER 2016-04-15 11:33 | Inpatient (IN) | payer OTHER ==
[~2016-04-15] VITALS: Ht 180.3 cm; Wt 82.9 kg
--- NOTE | ~2016-04-15 | PLAN ---
[facility] [place] [address] REHAB UNIT PLAN OF CARE Name: SABINA ANTONIO Room #: 506-1 [facility] IN M.R.#: [id number] Admission: 04/15/16 Attend Phys: Altaf Zeng MD Discharge: 05/01/16 Date of : 47 Report #: [id number] THIS REPORT FOR: //name// CC: Altaf Zeng DATE OF SERVICE: 04/18/2016 The patient is seen back today in followup. He is in no distress. Last recorded temperature 98.1, pulse 83, respirations 18, blood pressure 133/59. He has the residual limb dressed with the immobilizer in place. Transfers are max assist. He has not been able to hop on his remaining leg. Lower extremity dressing is dependent. Upper extremity dressing is min assist. Continuing the dressing to the right foot ulcer. ASSESSMENT: 1. Status post left below knee amputation on 04/11/2016. 2. Nonhealing diabetic foot ulcers. 3. Insulin-dependent diabetes mellitus. 4. Peripheral polyneuropathy. 5. Hypertension. 6. Generalized weakness and debilitation. 7. Bilateral Dupuytren's contractures of the hands. 8. Chronic ulcer, right lateral foot. PLAN: The overall plan of care is based on the preadmission screen, post-admission physician evaluation and information garnered from therapy assessments. 1. Estimated length of stay is probably around 2-1/2-3 weeks. He likely will need a longer stay as he is at a lower functional level. 2. Medical prognosis is reasonably good. 3. Anticipated interventions include the interdisciplinary acute inpatient rehabilitation program with PT and OT. I have asked speech therapy to get involved as well regarding a cognitive assessment. Rehab nursing assisting regarding medication management, skin care prophylaxis, bowel and bladder issues and nursing education. Case management is involved as well as the it sales consultant physicians. Wound care is following as well as Infectious Disease as he did have the osteomyelitis prior to the below knee amputation. 4. Anticipated functional outcomes would be for the patient to improve as far as basic transfers, mobility and ADLs initially at the wheelchair level, so that he can return back to the home setting. 5. Discharge destination will be back to his home setting where he lives in an apartment alone. May need to look at other options with family that live in the area to give him more assistance. 6. Expected therapy by discipline includes PT and OT, 1 to 1-1/2 hours per day each five days a week throughout the duration of the acute inpatient [address] [address] REHAB UNIT PLAN OF CARE Name: SABINA ANTONIO Room #: 506-1 [facility] IN ..#: [id number] Admission: 04/15/16 Attend Phys: Altaf Zeng MD Discharge: 05/01/16 Date of : 47 Report #: [id number] rehabilitation stay. Speech therapy is being started for one half to one hour per day, 5 days a week pending the needs. The main focus will be the physical therapy and occupational therapy on functional mobility and ADLs. <ELECTRONICALLY SIGNED> By: Altaf Zeng MD 05/08/16 1617 0835 0936 Altaf Zeng MD /nt
--- NOTE | ~2016-04-15 | H ---
[facility] [place] [address] HISTORY AND PHYSICAL Name: SABINA ANTONIO Room #: 506-1 ADM IN M.R.#: [id number] Admission: 04/15/16 Attend Phys: Altaf Zeng MD Discharge: Date of : 47 Report #: [id number] THIS REPORT FOR: //name// CC: Altaf Zeng DATE OF SERVICE: 04/15/2016 HISTORY OF PRESENT ILLNESS: The patient is a 70-year-old white male with a history of insulin-dependent diabetes mellitus and wounds on his feet, who was originally admitted with worsening weakness. He has history of nonhealing diabetic foot ulcers and issues with noncompliance. He had a prior left partial foot amputation. Upon evaluation, he was noted to have osteomyelitis of his remaining left foot. He was followed by infectious disease with IV antibiotics. He was seen by orthopedics and underwent a left below-knee amputation on 04/11/2016. Wound care was continuing to follow regarding his right remaining lateral foot ulcer on the right. This is being treated with Betadine. The patient has significant functional mobility and ADL deficits with his left below-knee amputation. He has been followed by psychiatry as well regarding mood disorder. He has now been admitted for an acute in-hospital inpatient rehabilitation stay. He has insulin-dependent diabetes mellitus, which has been uncontrolled with an hemoglobin A1c of 8.3 initially. He also has hypertension that has been uncontrolled and has had the Bystolic resumed. PAST MEDICAL HISTORY: Includes diabetes mellitus type 2, history of peripheral neuropathy, partial amputation of the left foot in 2010, hypertension, he has had noncompliance with the diabetes as well as hypertension. HABITS: Some alcohol use report that is moderate. No recreational drug use. History of tobacco, but not currently. MEDICATIONS: See the full medication listing. ALLERGIES: No known drug allergies. SOCIAL HISTORY: Lives in an apartment alone. He can get into the apartment without going up the steps. He does not use any gait aids in the apartment, but has been using a walker out in the community. He has been able to do his own ADLs, drive in the community. He has a sister who is , lives in [place] who would be able to be of some assistance. He also has friends that could assist. REVIEW OF SYSTEMS: No current complaints of chest pain, shortness of breath, abdominal discomfort. No focal extremity pain complaints. Pain appears to be reasonably controlled involving the left residual limb. [facility] [address] [place] [address] HISTORY AND PHYSICAL Name: SABINA ANTONIO Room #: 506-1 [facility] IN [facility]#: [id number] Admission: 04/15/16 Attend Phys: Altaf Zeng MD Discharge: Date of : 47 Report #: [id number] PHYSICAL EXAMINATION: GENERAL: A 70-year-old white male, in no obvious distress. VITAL SIGNS: Last recorded temperature 97.9, pulse 84, respirations 18, and blood pressure 138/75. NEUROLOGIC: The patient is alert. He is pleasant. HEENT: Appeared to be benign. Cranial nerves are grossly intact. Facies are symmetric. CHEST: Sounded clear to auscultation. CARDIAC: Regular rate and rhythm. ABDOMEN: Bowel sounds positive, nontender. GENITOURINARY: Deferred. RECTAL: Deferred. EXTREMITIES: He has what look like chronic Dupuytren's contractures of both hands with fixed flexion deformities especially the fourth and fifth digits. Proximal strength of the upper extremities is grade a 4 to 4-/5. Lower extremities, he has the left below-knee amputation with the knee immobilizer in place in the residual limb dressed. Proximal strength is at least a grade 3+ to 4-/5. Right lower extremity has decreased proprioception. Dressing over right lateral foot. Strength of the right lower extremity is 4-/5. Decreased sensation in a stocking distribution of right lower extremity. He is needing assistance with basic functional mobility skills. Transfers have been max assist. ASSESSMENT: 1. Chronic osteomyelitis, status post left below-knee amputation on 04/11/2016. 2. Nonhealing diabetic foot ulcers. 3. Insulin-dependent diabetes mellitus. 4. Peripheral polyneuropathy. 5. Hypertension. 6. Generalized weakness and debilitation. 7. Bilateral Dupuytren's contractures of the hands. PLAN: The patient is admitted for acute in-hospital inpatient rehabilitation. From a post-admission physician evaluation perspective, there are no relevant changes since the preadmission screening. Please see the above review of prior and current medical and functional conditions and comorbidities. Please see the patient's prior and current functional status. As far as risk of complications, the patient has multiple medical comorbidities as noted above. Initial plan of care involves the interdisciplinary acute inpatient rehabilitation program with the goal of maximizing the patient's functional independence. Measurable functional goals would be for him to become modified independent with transfers, mobility, ADLs that he can hopefully return back to his prior living situation. Prognosis is reasonably good with estimated length of stay probably at least a couple of weeks as he is at a lower level. Potential barriers would include his multiple medical comorbidities and his decreased functional status. [address] [address] HISTORY AND PHYSICAL Name: SABINA ANTONIO Room #: 506-1 ADM IN M.R.#: [id number] Admission: 04/15/16 Attend Phys: Altaf Zeng MD Discharge: Date of : 47 Report #: [id number] The patient's diagnosis is appropriate for an acute in-hospital inpatient rehabilitation stay. He meets medical necessity criteria. He does have appropriate tolerance for therapies and has appropriate discharge goals back to the home setting. <ELECTRONICALLY SIGNED> By: Altaf Zeng MD 04/17/16 [id number] Altaf Zeng MD /nt
--- NOTE | ~2016-04-15 | PLAN ---
[facility] [place] [address] REHAB UNIT PLAN OF CARE Name: SABINA ANTONIO Room #: 506-1 DIS IN M.R.#: [id number] Admission: 04/15/16 Attend Phys: Altaf Zeng MD Discharge: 05/01/16 Date of : 47 Report #: [id number] THIS REPORT FOR: //name// CC: Altaf Zeng ADDENDUM The patient missed some therapy on Saturday and Saturday, April 16 and 04/17/2016 due to pain complaints. He was not in any pain this morning. Orthopedics is followed with him. He is on Neurontin and has hydrocodone available as well as tramadol. He also has Tylenol. We are continuing to follow in this regard. <ELECTRONICALLY SIGNED> By: Altaf Zeng MD 05/08/16 1623 [id number] Altaf Zeng MD /nt
--- NOTE | ~2016-04-15 | HC ---
[facility] [place] [address] CONSULTATION Name: SABINA ANTONIO Room #: 506-1 ADM IN M.R.#: [id number] Admission: 04/15/16 Attend Phys: Altaf Zeng MD Discharge: Date of : 47 Report #: [id number] THIS REPORT FOR: //name// CC: Altaf Zeng DATE OF SERVICE: 04/20/2016 TYPE OF REPORT: Neuro behavioral status examination. ATTENDING PHYSICIAN: Altaf Zeng M.D. BURNISHER AND BUMPER: Getachew Bravo, Ph.D. CLINICAL PRESENTATION: The patient is a 70-year-old white male admitted to the rehabilitation unit at [facility] for comprehensive inpatient rehabilitation program to improve functional mobility and activities of daily living and self-care secondary to impairment from chronic osteomyelitis, status post left below the knee amputation, nonhealing diabetic foot ulcers, insulin-dependent diabetes mellitus, peripheral polyneuropathy, hypertension, generalized weakness and debility and bilateral Dupuytren's contractures of the hands. A complete description of his medical condition and history can be found in his medical record. Neuropsychological consultation was requested to provide assistance in the assessment of cognitive and emotional status and to provide recommendations and services. MEDICATIONS: Reported to include insulin, mirtazapine, metformin, gabapentin, hydrocodone, barbiturate, docusate, aspirin, Nebivolol hydrochloride, tramadol, pantoprazole, nystatin, atorvastatin calcium, dextrose 50% water, glucose liquid, glucose and acetaminophen as indicated. A complete description of medications and dosing can be found in his medical record. Prior to this most recent hospitalization, the patient reports living alone in his own home. He states that he was driving, managing his medications and nutrition and that he was not having any problems with independent living. He appears to lack insight into the extent of impairment that he is experiencing and his ability to manage his care without assistance. The patient reports having no children. He has one sister who lives in the [place] area. He is a college graduate. 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 He states his social support is good. TECHNIQUES UTILIZED: Clinical interview, review of medical records, staff consultation and behavioral observation. EXAMINATION FINDINGS: The patient was alert and cooperative with the assessment. He was vague about the reason for his hospitalization. He does not [facility] [address] [address] CONSULTATION Name: SABINA ANTONIO Room #: 506-1 [facility] IN M.R.#: [id number] Admission: 04/15/16 Attend Phys: Altaf Zeng MD Discharge: Date of : 47 Report #: [id number] present with aphasia. There are no auditory or visual hallucinations. Decreased insight into aspects of his impairment are noted. He describes his symptoms as primarily related to pain initially, but he indicates having no pain at this time. The patient does not report difficulty with sleep, appetite, energy level, word finding or mood. He denies depression or anxiety at this time. As indicated, minimization of symptoms and problems along with decreased insight is suggested. His performance on the MMSE 2 brief version was extremely low with a raw score of 11 of 16. He was 3/3 for initial registration, 4/5 for orientation to time, 3/[address] and 1/3 for immediate recall of 3 items after a brief time delay and distraction. His performance on the standard version of the MMSE 2 was extremely low with a raw score 22 of 30 and T-score of 25, which is at the first percentile. The patient is presenting with an impairment and sustained concentration and attention, visual spatial organization and executive functioning. He was unable to accurately set the hands of a clock at a designated time. DIAGNOSTIC IMPRESSION: Neurocognitive disorder, with decreased insight, extent to be determined, likely moderate to severe at this time. Depressive disorder, unspecified. RECOMMENDATIONS: The patient will benefit from a more thorough neuropsychological evaluation following his discharge. At this time, the patient is presenting with severe cognitive impairment. Decreased insight into the extent of his deficits places him at an increased safety risk. His performance is somewhat consistent with the previous evaluation to the extent of having decreased insight into the extent of his disability. He was evaluated in 2013 with recommendations that included increased supervision and assistance in managing healthcare needs. At this time, a 24-hour care will be necessary for him to maintain safety. As indicated, be happy to follow up with neuropsych testing to clarify the severity of cognitive function approximately 4-6 weeks following discharge as his acute medical condition resolves. The use of compensatory strategies for areas of decreased cognition are indicated. Speech therapy will also be helpful to assist in his cognitive recovery. Thank you very much for allowing me to provide the consultation on this patient. <ELECTRONICALLY SIGNED> By: Getachew Bravo, PhD 04/22/16 1437 [id number] Getachew Bravo, PhD /nt
[2016-04-15] MEDS ORDERED: ATORVASTATIN CA20 MG PO (12:31)
[2016-04-15] MEDS ORDERED: ASPIR 8181 MG PO (12:31)
[2016-04-15] MEDS ORDERED: LEVEMIR SUBQ (12:31)
[2016-04-15] MEDS ORDERED: BYSTOLIC 5 MG5 MG PO (12:31)
[2016-04-15] MEDS ORDERED: PANTOPRAZOLE SO40 M1 PO (12:31)
[2016-04-15] MEDS ORDERED: ACETAMINOPHEN325 M1 PO (12:31)
[2016-04-15] MEDS ORDERED: HUMALOG100 UNIT/1 SUBQ (12:31)
[2016-04-15] MEDS ORDERED: HYDROCODONE-APA1 TA1 PO (13:31)
[2016-04-15] MEDS ORDERED: ENOXAPARIN40 MG/0.1 SUBQ (13:58)
[2016-04-15] MEDS ORDERED: NOVOLOG100 UNIT/1 SUBQ (14:00)
[2016-04-15 15:38] VITALS: BP 124/63
[2016-04-16 06:02] VITALS: BP 138/75
[2016-04-16 06:35] LABS: CALCIUM 8.8 mg/dL (8.5-10.1); CREATININE 0.8 mg/dL (0.6-1.3); MAGNESIUM 1.9 mg/dL (1.8-2.4); POTASSIUM 3.6 mmol/L (3.5-5.1)
[2016-04-16 17:45] VITALS: BP 120/63
[2016-04-17 03:15] VITALS: BP 113/58
[2016-04-17 16:09] VITALS: BP 110/80
[2016-04-18 03:46] VITALS: BP 133/59
[2016-04-18 16:00] VITALS: BP 116/63
[2016-04-18 21:20] VITALS: BP 125/58
[2016-04-19 03:53] VITALS: BP 142/74
[2016-04-19 16:00] VITALS: BP 118/68
[2016-04-20 05:20] VITALS: BP 137/61
[2016-04-20 15:59] VITALS: BP 118/77
[2016-04-21 05:03] VITALS: BP 114/72
[2016-04-21 16:00] VITALS: BP 114/60
[2016-04-22 05:56] VITALS: BP 122/63
[2016-04-22 09:16] VITALS: BP 120/70
[2016-04-22 16:00] VITALS: BP 105/66
[2016-04-23 04:50] VITALS: BP 121/70
[2016-04-23 16:08] VITALS: BP 114/57
[2016-04-24 04:40] VITALS: BP 114/61
[2016-04-24 06:01] LABS: ABSOLUTE NEUTROPHILS 5.6 thou/uL (1.4-8.2); BASOPHILS 0.7 % (0.0-2.0); HEMATOCRIT 37.7 % (42.0-52.0); HEMOGLOBIN 12.7 gm/dL (14.0-18.0); LYMPHOCYTES 28.2 % (24.0-44.0); MCH 27.1 pg (26.0-34.0); MCHC 33.7 % (28.0-37.0); MCV 80.3 fL (80.0-100.0); MONOCYTES 7.7 % (1.0-8.0); PLATELET COUNT 396 thou/uL (150-400); POLYS 60.4 % (36.0-66.0); RDW 14.9 % (10.5-14.5); WBC 9.2 thou/uL (4.0-11.0)
[2016-04-24 06:02] LABS: MANUAL DIFF NO
[2016-04-24 06:29] LABS: ALBUMIN 2.2 g/dL (3.4-5.0); CALCIUM 8.9 mg/dL (8.5-10.1); CREATININE 1.1 mg/dL (0.6-1.3); MAGNESIUM 1.9 mg/dL (1.8-2.4); POTASSIUM 4.1 mmol/L (3.5-5.1); TOTAL BILIRUBIN 0.3 mg/dL (<0.1-1.0); TOTAL PROTEIN 6.7 g/dL (6.4-8.2)
[2016-04-24 08:02] VITALS: BP 110/68
[2016-04-24 18:11] VITALS: BP 116/69
[2016-04-25 05:33] VITALS: BP 108/69
[2016-04-25 15:45] VITALS: BP 120/65
[2016-04-26 05:45] VITALS: BP 124/75
[2016-04-26 08:05] VITALS: BP 115/68
[2016-04-26 16:00] VITALS: BP 125/77
[2016-04-27 05:53] VITALS: BP 134/79
[2016-04-27 08:34] VITALS: BP 123/77
[2016-04-27 16:39] VITALS: BP 119/61
[2016-04-28 05:35] VITALS: BP 136/69
[2016-04-28 16:59] VITALS: BP 113/67
[2016-04-29 05:28] VITALS: BP 131/77
[2016-04-29 16:00] VITALS: BP 110/68
[2016-04-30 05:44] VITALS: BP 121/71
[2016-04-30 15:30] VITALS: BP 98/62
[2016-04-30] MEDS ORDERED: NEURONTIN 300300 M1 PO (22:38)
[2016-04-30] MEDS ORDERED: REMERON 30 MG T30 M1 PO (22:38)
[2016-05-01 05:04] VITALS: BP 134/68
[2016-05-01 08:00] VITALS: BP 124/54
== END 2016-05-01 13:49 | DRG 560 ==
LOC: 3N 11:33
PROVIDERS: Nurse Practitioner; Nurse Practitioner Acute Care
PROC: B5181ZA Fluoroscopy of Superior Vena Cava using Low Osmolar Contrast, Guidance (ICD-10-PCS; principal; 2016-04-15)
PROC: 02HV33Z Insertion of Infusion Device into Superior Vena Cava, Percutaneous Approach (ICD-10-PCS; principal; 2016-04-15)
DX: Z47.81 Encounter for orthopedic aftercare following surgical amputation (principal); M86.60 Other chronic osteomyelitis, unspecified site; L97.419 Non-pressure chronic ulcer of right heel and midfoot with unspecified severity; E11.621 Type 2 diabetes mellitus with foot ulcer; E11.40 Type 2 diabetes mellitus with diabetic neuropathy, unspecified; R53.81 Other malaise; I10 Essential (primary) hypertension; G31.84 Mild cognitive impairment of uncertain or unknown etiology; F32.9 Major depressive disorder, single episode, unspecified; M72.0 Palmar fascial fibromatosis [Dupuytren]; G47.00 Insomnia, unspecified; E11.51 Type 2 diabetes mellitus with diabetic peripheral angiopathy without gangrene; E11.69 Type 2 diabetes mellitus with other specified complication; E11.65 Type 2 diabetes mellitus with hyperglycemia; R26.9 Unspecified abnormalities of gait and mobility; Z79.4 Long term (current) use of insulin; Z68.25 Body mass index [BMI] 25.0-25.9, adult; R53.1 Weakness
CPT/HCPCS: 10112